=== PATIENT | male | born 1990 | race Caucasian/White ===

== ENCOUNTER 2016-05-13 01:06 | Inpatient (IN) | payer BC, OTHER ==
[2016-05-13] VITALS (7 sets, daily range): BP systolic 114–134; RESP 14–20; TEMP 97.6–98.4; Ht 185.4 cm; Wt 72.6 kg
[~2016-05-13] VITALS: Ht 185.4 cm; Wt 72.6 kg
[2016-05-13] MEDS ORDERED: DILAUDID 1 MG/ML AMP ONE ×2 (01:45→04:30)
[2016-05-13] MEDS ORDERED: LORAZEPAM 2 MG/ML VIAL ONE (01:45)
[2016-05-13] MEDS ORDERED: PROPOFOL 50 ML IV ONE (01:55)
[2016-05-13] MEDS ORDERED: SODIUM CHLORIDE 0.9% 1,000 ML ONE (04:31)
[2016-05-13] MEDS ORDERED: MAG HYDROX 30 ML UDC PO PRN (05:40)
[2016-05-13] MEDS ORDERED: BISACODYL EC 5 MG TAB PO PRN (05:40)
[2016-05-13] MEDS ORDERED: Ibuprofen 600 MG TAB PO PRN (05:40)
[2016-05-13] MEDS ORDERED: ONDANSETRON 4 MG VIAL IV PRN (05:40)
[2016-05-13] MEDS ORDERED: ACETAMINOPHEN 325 MG TAB PO PRN (05:40)
[2016-05-13] MEDS ORDERED: ALU/MAG/SIM 30 ML UDC PO PRN (05:40)
[2016-05-13] MEDS ORDERED: BISACODYL 10 MG SUPP RECTAL PRN (05:40)
[2016-05-13] MEDS ORDERED: DILAUDID 1 MG/ML AMP IV PRN ×2 (05:40)
[2016-05-13] MEDS ORDERED: SALINE FLUSH 10 ML FLUSH PRN (05:40)
[2016-05-13] MEDS: SODIUM CHLORIDE 0.9% FLUSH BAG 500 ML IV SCH (06:00)
[2016-05-13] MEDS ORDERED: PNEUMO VAC 25 MCG/0.5 ML VL IM.VACC ONE (06:00)
[2016-05-13] MEDS: DUONEB INH SCH ×3 (07:31→18:20)
[2016-05-13] MEDS: MORPHINE 4 MG/ML SYR IV PRN ×2 (09:10→13:17)
[2016-05-13] MEDS: SALINE FLUSH 10 ML FLUSH SCH ×2 (09:15→20:36)
[2016-05-13] MEDS: NICOTINE 14 MG/24 HR TDSY TRANSDERM SCH (10:30)
[2016-05-13] MEDS: NEB-BROVANA 15 MCG/2 ML INH SCH ×2 (11:25→18:20)
[2016-05-13] MEDS: NEB-BUDESONIDE 0.5 MG INH SCH ×2 (11:25→18:20)
[2016-05-13] MEDS ORDERED: MISSING DOSE XX ONE (19:55)
[2016-05-13] MEDS: MONTELUKAST 10 MG TAB PO SCH (20:36)
[2016-05-14 02:56] VITALS: BP_SYST 131; RESP 16; TEMP 97.5
[2016-05-14] MEDS: MORPHINE 4 MG/ML SYR IV PRN (05:39)
[2016-05-14] MEDS: SODIUM CHLORIDE 0.9% FLUSH BAG 500 ML IV SCH (06:00)
[2016-05-14] MEDS: DUONEB INH SCH ×3 (06:24→18:49)
[2016-05-14] MEDS: NEB-BROVANA 15 MCG/2 ML INH SCH ×2 (06:24→18:49)
[2016-05-14] MEDS: NEB-BUDESONIDE 0.5 MG INH SCH ×2 (06:24→18:48)
[2016-05-14] MEDS: SALINE FLUSH 10 ML FLUSH SCH ×2 (07:50→20:34)
[2016-05-14] MEDS: NICOTINE 14 MG/24 HR TDSY TRANSDERM SCH (07:52)
[2016-05-14 07:59] VITALS: BP_SYST 125; RESP 16; TEMP 97.9
[2016-05-14] MEDS ORDERED: MISSING DOSE XX ONE (10:30)
[2016-05-14] MEDS ORDERED: DIPHENHYDRAMINE 25 MG/10 ML UDC PO PRN (10:40)
[2016-05-14 11:11] VITALS: BP_SYST 120; RESP 12; TEMP 97.6
[2016-05-14 15:39] VITALS: BP_SYST 120; RESP 12; TEMP 97.5
[2016-05-14] MEDS ORDERED: ZINC TOPICAL PRN (15:50)
[2016-05-14] MEDS ORDERED: DIPHENHYDR TOPICAL PRN (15:50)
[2016-05-14] MEDS: FLUTICASONE 0.05% NA BTL NARE EACH SCH (17:05)
[2016-05-14 19:54] VITALS: BP_SYST 128; RESP 16; TEMP 98
[2016-05-14] MEDS: MONTELUKAST 10 MG TAB PO SCH (20:34)
[2016-05-15 00:21] VITALS: RESP 18
[2016-05-15 03:08] VITALS: BP_SYST 113; RESP 18; TEMP 97.4
[2016-05-15] MEDS: SODIUM CHLORIDE 0.9% FLUSH BAG 500 ML IV SCH (06:00)
[2016-05-15 07:51] VITALS: BP_SYST 107; RESP 16; TEMP 97.3
[2016-05-15] MEDS: DUONEB INH SCH ×2 (07:57→11:48)
[2016-05-15] MEDS: NEB-BUDESONIDE 0.5 MG INH SCH (07:57)
[2016-05-15] MEDS: NEB-BROVANA 15 MCG/2 ML INH SCH (07:57)
[2016-05-15] MEDS: NICOTINE 14 MG/24 HR TDSY TRANSDERM SCH (09:00)
[2016-05-15] MEDS ORDERED: PSYLLIUM PO SCH (09:00)
[2016-05-15] MEDS: SALINE FLUSH 10 ML FLUSH SCH (09:20)
[2016-05-15] MEDS: FLUTICASONE 0.05% NA BTL NARE EACH SCH (09:20)
[2016-05-15 11:34] VITALS: BP_SYST 98; RESP 18; TEMP 98.4
[2016-05-15 14:43] VITALS: BP_SYST 98; RESP 18; TEMP 98.4
[2016-05-15 14:45] VITALS: BP_SYST 98; RESP 18; TEMP 98.4
== END 2016-05-15 15:41 | disposition home or self-care (01) | DRG 201 ==
LOC: ENRESERVTM → ENRESERVDT → ER 01:06 → EMR 03:28 → 3NT 05:55 → OBSVTOIN 05-14 08:18 → ENPENDDIS 05-14 08:18
PROVIDERS: ADMIT Family Medicine; ATTEND Family Medicine
PROC: 0W9B30Z Drainage of Left Pleural Cavity with Drainage Device, Percutaneous Approach (ICD-10-PCS; principal; 2016-05-14)
DX: J93.83 Other pneumothorax (principal); F17.210 Nicotine dependence, cigarettes, uncomplicated; Z79.51 Long term (current) use of inhaled steroids; J45.40 Moderate persistent asthma, uncomplicated
CPT/HCPCS: 36415; 71010; 71250; 80053; 82103; 85025; 85610; 85730; 86701; 93005; 94640; 96361; 96374; 99220; 99223; 99233